=== PATIENT | male | born 1970 | race Caucasian/White ===

== ENCOUNTER → 2021-04-05 | Outpatient (CLI) | payer BC ==
[~2021-04-05] VITALS: Ht 185.4 cm; Wt 101.6 kg
[~2021-04-05] MED LIST: ALEVE220 MG PO; MULTI VITAMIN1 EACH PO; NABUMETONE 500500 M2 PO
[2021-04-05 08:19] VITALS: BP 166/105
--- NOTE | 2021-04-05 08:45 | NUR ---
Pain Clinic Assessment: 1. History of Osteoarthritis: Right Upper Extremity Left Upper Extremity SPINE History of Rheumatoid Arthritis: Not Applicable 2. Height: 6 ft. 1 in. 185.4 cm. Weight: 224.0 lb. oz. 101.606 kg. Patient's BMI: 29.6 3. Vital Signs: BP: 166/105 Pulse: 79 Resp: 14 Temp: 02 Sat: 97 ECG Mon: 4. Pain Intensity: 2-4 5. Fall Risk: Dizziness: N Needs help standing or walking: N Fallen in the last 3 months: N Fall risk comments: 6. Patient on Blood Thinner: None 7. History of Hypertension: N 8. Opioid Therapy greater than 6 weeks: N Opiate Contract Signed: 9. Risk Assessment Tool Provided: LOW 10. Functional Assessment Tool: 11. Recreational Drug Use: Never Drug Type: Tobacco Use: Never Smoker Tobacco Type: Amount or Packs/day: How Many Years: Alcohol Use: Yes Frequency: Weekly Quant: 3
--- NOTE | 2021-04-11 12:13 | HPC ---
[facility] [address] [address] PAIN MANAGEMENT CONSULTATION Name: SKYLA MAZA Room #: REG Albert MYovana.#: [id number] Admission: 04/05/21 Attend Phys: Ronny Chavez DO Discharge: Date of : 74 Report #: [id number] THIS REPORT FOR: cc: JOSE ALFREDO FOX Physician not on staff Ronny Chavez DO ~ cc: Tara Drew DATE OF SERVICE: 04/05/2021 REFERRING: Tara Drew NP CHIEF COMPLAINT: Axial back pain. HISTORY OF PRESENT ILLNESS: As you know, the patient is a 50-year-old male reporting longstanding history of axial back pain began in 2019. He denies injury or trauma that may have led to symptom development. He has trialled conservative treatment options without much in the way of benefit. He was seen in consultation by Neurosurgery who advised the patient no surgical options are necessary. The source of his pain appears to be related to facet arthropathy. He was seen in consultation by our services at our [facility] office in 11/2020 and diagnosed with lumbosacral spondylosis and trialled on conservative treatment. He did well with conservative treatment initially, but unfortunately symptoms reoccurred. He was established an appointment to begin medial branch nerve blocks and move forward with radiofrequency lesioning, but was unable to do so due to his insurer. He has now changed insurances and has changed facilities and has transferred care to our facility at [facility] to discuss ongoing treatment. The patient reports today his pain is intermittent and momentary. He describes the pain as a shooting, sharp and stabbing sensation. He places current pain score 2-4/10 daily average at 4/10, worst pain has been 9/10. The patient states pain is exacerbated with bending at the waist sitting for any length of time or standing on concrete surfaces. The patient reports pain is improved with [id number] medications and stretching exercises. He has been referred to our service to discuss treatment options for axial back pain. PAST MEDICAL HISTORY: None. PAST SURGICAL HISTORY: 1. Left shoulder surgery. 2. Right shoulder surgery. SOCIAL HISTORY: The patient denies tobacco, IV or illicit drug use. Admits to occasional alcohol beverage. 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 He is unaccompanied at today's visit. [facility] [address] [place] [address] PAIN MANAGEMENT CONSULTATION Name: SKYLA MAZA Room #: REG CLI [facility]#: [id number] Admission: 04/05/21 Attend Phys: Ronny Chavez DO Discharge: Date of : 74 Report #: [id number] REVIEW OF SYSTEMS: Positive only for low back pain, nocturia and kidney stones. All other review of systems negative per 12-point review of systems other than those listed in history of present illness. Pain impact score 35/70, moderate interference of daily activities secondary to pain. ALLERGIES: No reported drug allergies. CURRENT MEDICATIONS: Nabumetone 500 mg twice a day and multivitamin 1 tab per day. IMAGING: No imaging available. PHYSICAL EXAMINATION: VITAL SIGNS: Blood pressure 140/100, pulse is 67, respiratory rate 18 and unlabored. The patient is 100% on room air. Height 6 feet 2 inches tall, weight 100.6 kg, BMI calculated 28.5. GENERAL: Well-developed, well-nourished, well-hydrated 50-year-old male appearing his stated age. He is placing current pain score 4/10. HEENT: Normocephalic, atraumatic. Pupils equal, round and responsive. Speech is fluent. He is wearing a mask in compliance with COVID-19 regulations. LUNGS: Clear, no wheeze, rhonchi or rales. CARDIOVASCULAR: Regular. No appreciable gallop, no rub. ABDOMEN: Soft, nontender. EXTREMITIES: Show no clubbing, no cyanosis. No appreciable edema. MUSCULOSKELETAL: Lower extremity strength equal and symmetrical 5/5, intact to light touch from L1 through S2 dermatomes. Seated straight leg raising negative. Supine straight leg raising negative. Marcie's test is negative. Modified Gaenslen's positive for axial low back pain. Lumbar provocation testing including extension, rotation, lateral flexion all intensify axial back pain without radiation of symptoms. ASSESSMENT: 1. Lumbosacral spondylosis without radiculopathy or myelopathy. 2. Facet arthropathy of lumbar spine. 3. Chronic low back pain. PLAN: 1. Based on today's physical exam and history the patient has provided, the description the patient uses in regards to pain as well as location of symptoms, it would appear the patient is suffering from facet arthropathy of lumbar spine. We have discussed with the patient the treatment options that we have available to address his lumbar spondylosis without radiculopathy or myelopathy. The following was discussed with the patient today. We discussed physical therapy, [facility] [address] [place] [address] PAIN MANAGEMENT CONSULTATION Name: SKYLA MAZA Room #: REG CLAlbert Theodore#: [id number] Admission: 04/05/21 Attend Phys: Ronny Chavez DO Discharge: Date of : 74 Report #: [id number] stretching exercises and core strengthening. The patient has been doing home exercise program that is physician directed without significant improvement in symptoms. We have discussed adjustments in medication management for a consistent nonsteroidal anti-inflammatory to be added to the patient's list of medications. We discussed medial branch nerve blocks and radiofrequency lesioning as the treatment approach that will likely provide the best analgesic long-term benefit. We also discussed surgical options with the patient. After reviewing risks and benefits of all the proposed treatment options, the patient chose to move forward with medial branch nerve blocks if these are then successful on to radiofrequency lesioning. 2. The patient was advised due to third green party payer restrictions authorization would have to be obtained before the patient could begin the medial branch blocking process. If these are then successful at alleviating symptoms greater than 80%, we would then move forward with radiofrequency lesioning medial branch nerves. The patient is agreeable with the plan. He will await authorization. 3. No medication changes made at today's visit. The patient will continue current medical therapy as prior prescribed. 4. We will see the patient back in followup visit once we have achieved authorization for the patient to undergo medial branch nerve blocks of the lumbar spine. If these are then successful in alleviating pain generated from the L4-L5 and L5-S1 levels, we would then move forward with medial branch nerve radiofrequency. 5. We wish to thank the referring nurse practitioner, Tara Drew for the opportunity to see the patient in consultation. We will keep you apprised of response to treatment as we address ongoing axial back pain. Again, we wish to thank you for the opportunity to see the patient in consultation. <ELECTRONICALLY SIGNED> By: Ronny Chavez DO 04/11/21 1213 [id number] Ronny Chavez DO /nt
== END ==
LOC: PAIN 06:55
PROVIDERS: ATTEND Anesthesiology Pain Medicine
DX: M47.817 Spondylosis without myelopathy or radiculopathy, lumbosacral region (principal); M54.6 Pain in thoracic spine; M54.50 Low back pain, unspecified

== ENCOUNTER → 2021-05-02 | Outpatient (CLI) | payer BC ==
[~2021-05-02] VITALS: Ht 185.4 cm; Wt 103.6 kg
--- NOTE | ~2021-05-02 | HPC ---
[facility] [place] [address] PAIN MANAGEMENT CONSULTATION Name: SKYLA MAZA Room #: REG CL M..#: [id number] Admission: 05/02/21 Attend Phys: Ronny Chavez DO Discharge: Date of : 74 Report #: [id number] THIS REPORT FOR: cc: JOSE ALFREDO FOX Physician not on staff Ronny Chavez DO ~ cc: Tara Drew NP, ____ ____ DATE OF SERVICE: 05/02/2021 REFERRING PHYSICIAN: Tara Drew, nurse practitioner. CHIEF COMPLAINT: Axial back pain. HISTORY OF PRESENT ILLNESS: As you know, the patient is a very pleasant 50-year-old male reporting longstanding history of axial back pain. Pain began somewhere in 2019, no inciting injury or trauma. He was seen in consultation per the request of nurse practitioner, Tara Drew with [facility], to address axial back pain due to facet arthropathy. We have transferred the patient's care up to our [facility] office due to insurance coverage and availability of devices to complete radiofrequency lesioning. He has made today's appointment to begin medial branch nerve blocks. If these are then successful in alleviating symptoms, move forward with radiofrequency lesioning. He returns today in followup visit having received authorization to undergo the medial branch blocks today. He is placing pain anywhere from 6/10 to 7/10 depending on activity. He denies new injury, new trauma or any changes in medication management since our last visit. ALLERGIES: No reported drug allergies. CURRENT MEDICATIONS: Nabumetone 500 mg b.i.d., multivitamin 1 tab per day. SOCIAL HISTORY: The patient denies tobacco, IV or illicit drug use. Admits occasional alcohol beverage. 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 IMAGING: There is no new imaging available. PHYSICAL EXAMINATION: VITAL SIGNS: Blood pressure 144/99, pulse is 69, respiratory rate 16 and unlabored. The patient is 96% on room air, height 6 feet 1 inch tall, weight 228.4 pounds, BMI calculated 30.1. GENERAL: Well-developed, well-nourished, well-hydrated, 50-year-old male, appearing stated age, placing pain today, 09/22 to 10/22. HEENT: Normocephalic, atraumatic. Pupils equal, round. He is wearing a mask in compliance with COVID-19 regulations and hospital policy. [address] [address] PAIN MANAGEMENT CONSULTATION Name: SKYLA MAZA [id number] Admission: 05/02/21 Attend Phys: Ronny Chavez DO Discharge: Date of : 74 Report #: [id number] EXTREMITIES: Show no clubbing, no cyanosis, no edema. MUSCULOSKELETAL: Lower extremity strength is symmetrical, 5/5. Muscle bulk and tone is equal and symmetrical in comparing lower extremities. Straight leg raising in the seated and supine positions are negative. Lumbar provocation testing including extension, rotation, lateral flexion all intensify axial back pain consistent with facet arthropathy. ASSESSMENT: 1. Lumbosacral spondylosis without radiculopathy or myelopathy. 2. Facet arthropathy of lumbar spine. 3. Lumbar degeneration. 4. Chronic intractable pain. PLAN: 1. The patient has returned today in followup visit to begin the medial branch nerve blocks in preparation to move forward with radiofrequency lesioning assuming efficacy with the blocks themselves. The patient reports pain today at level of 6/10 to 7/10. He has been advised risks and benefits of the medial branch nerve block. He understands that this is a temporary diagnostic procedure. If this is successful, we will move forward with a second in the series. If that again is successful at alleviating symptoms for prescribed amount of time, then move forward with radiofrequency lesioning. The patient is agreeable with plan. He wishes to undergo the procedure today. 2. No medication changes made at today's visit. The patient will continue current medical therapy as prior prescribed. 3. We will plan to see the patient back in followup visit in approximately 2 weeks. At that time, review the efficacy of today's medial branch nerve blocks and determine if next in the series would be appropriate to moving forward with radiofrequency lesioning beyond. PROCEDURE NOTE. DESCRIPTION OF PROCEDURE: Bilateral L3, L4, L5 medial branch nerve blocks under fluoroscopic guidance, #1 in the series. After obtaining written consent, the patient was taken back to fluoroscopy suite, placed in prone position with pillow under abdomen to decrease lumbar lordosis. Skin overlying lumbosacral area then prepped and draped in aseptic fashion. The L4 transverse process corresponding the L3 medial branch nerve and the L5 transverse process corresponding the L4 medial branch nerve were visualized under fluoroscopic guidance. Skin and subcutaneous tissue overlying target site of injections were then anesthetized with 1 mL of 1% preservative-free lidocaine. Next, four 22-gauge 3-1/2 inch spinal needles with bent tips were advanced under fluoroscopic guidance using a superior, inferior, lateral to medial approach to the dorsal, superior and medial aspect of the base of the transverse processes. Enterprise were then directed caudad to reach target [address] [address] PAIN MANAGEMENT CONSULTATION Name: SKYLA MAZA Room #: REG Albert Srivastava.#: [id number] Admission: 05/02/21 Attend Phys: Ronny Chavez DO Discharge: Date of : 74 Report #: [id number] locations. Oblique view facilitated needle placement with properly positioned needles within the middle of the "eye" of the Odilon dog. At each of the sites, the needles rested on periosteum. After negative aspiration for heme or cerebrospinal fluid, 0.5 mL of bupivacaine 0.5% was injected slowly to avoid forcing the solution away from the site. Enterprise were retracted approximately chcf flushed with 1 mL of 1% lidocaine and removed. The L5 dorsal ramus block both on the left and right side was performed using a slightly oblique approach under fluoroscopic guidance, placing the needles within the groove between the sacral ala and superior articular process of S1. Enterprise rested on periosteum. After negative aspiration for heme or cerebrospinal fluid, 0.5 mL of bupivacaine 0.5% was injected bilaterally. Enterprise were retracted chcf, flushed with 1 mL of 1% lidocaine and removed. Sterile bandage placed over injection site. There were no new motor deficits present in the lower extremities following procedure. The patient tolerated the procedure well, carefully escorted to recovery room in stable condition. No apparent complications. After meeting our discharge criteria, the patient discharged home. By: [id number] Ronny Chavez DO /lenny
[2021-05-02 11:01] VITALS: BP 144/99
--- NOTE | 2021-05-02 11:21 | NUR ---
Pain Clinic Assessment: 1. History of Osteoarthritis: Right Upper Extremity Left Upper Extremity SPINE History of Rheumatoid Arthritis: Not Applicable 2. Height: 6 ft. 1 in. 185.4 cm. Weight: 228.4 lb. oz. 103.602 kg. Patient's BMI: 30.1 3. Vital Signs: BP: 144/99 Pulse: 69 Resp: 16 Temp: 02 Sat: 96 ECG Mon: 4. Pain Intensity: 6-7 w/activity 5. Fall Risk: Dizziness: N Needs help standing or walking: N Fallen in the last 3 months: N Fall risk comments: 6. Patient on Blood Thinner: None 7. History of Hypertension: N 8. Opioid Therapy greater than 6 weeks: N Opiate Contract Signed: 9. Risk Assessment Tool Provided: SHELBI 10. Functional Assessment Tool: 11. Recreational Drug Use: Never Drug Type: Tobacco Use: Never Smoker Tobacco Type: Amount or Packs/day: How Many Years: Alcohol Use: Yes Frequency: Quant:
== END | disposition home or self-care (01) ==
LOC: PAIN 04-25 08:35
PROVIDERS: ATTEND Anesthesiology Pain Medicine
DX: M47.817 Spondylosis without myelopathy or radiculopathy, lumbosacral region (principal); M47.816 Spondylosis without myelopathy or radiculopathy, lumbar region; M51.36 Other intervertebral disc degeneration, lumbar region; G89.29 Other chronic pain; M19.90 Unspecified osteoarthritis, unspecified site; Z98.890 Other specified postprocedural states; Z79.899 Other long term (current) drug therapy

== ENCOUNTER → 2021-05-30 | Outpatient (CLI) | payer BC ==
[~2021-05-30] VITALS: Ht 185.4 cm; Wt 103.1 kg
[2021-05-30 13:50] VITALS: BP 130/94
--- NOTE | 2021-05-30 14:16 | NUR ---
Pain Clinic Assessment: 1. History of Osteoarthritis: Right Upper Extremity Left Upper Extremity SPINE History of Rheumatoid Arthritis: Not Applicable 2. Height: 6 ft. 1 in. 185.4 cm. Weight: 227.2 lb. oz. 103.057 kg. Patient's BMI: 30.0 3. Vital Signs: BP: 130/94 Pulse: 80 Resp: 16 Temp: 02 Sat: 97 ECG Mon: 4. Pain Intensity: 1 5. Fall Risk: Dizziness: N Needs help standing or walking: N Fallen in the last 3 months: N Fall risk comments: 6. Patient on Blood Thinner: None 7. History of Hypertension: N 8. Opioid Therapy greater than 6 weeks: N Opiate Contract Signed: 9. Risk Assessment Tool Provided: LOW 10. Functional Assessment Tool: 11. Recreational Drug Use: Never Drug Type: Tobacco Use: Never Smoker Tobacco Type: Amount or Packs/day: How Many Years: Alcohol Use: Yes Frequency: Weekly Quant: 2
--- NOTE | 2021-06-06 08:06 | HPC ---
[facility] [place] [address] PAIN MANAGEMENT CONSULTATION Name: SKYLA MAZA Room #: REG [facility] M..#: [id number] Admission: 05/30/21 Attend Phys: Ronny Chavez DO Discharge: Date of : 74 Report #: [id number] THIS REPORT FOR: cc: JOSE ALFREDO LAGUERRE Physician not on staff Ronny Chavez DO ~ cc: Jose Alfredo Laguerre NP, Tara Drew NP DATE OF SERVICE: 05/30/2021 REFERRING PHYSICIAN: Tara Drew NP CHIEF COMPLAINT: Axial back pain. HISTORY OF PRESENT ILLNESS: As you know, the patient is a very pleasant 50-year-old male referred to our clinic for axial back pain. He sought evaluation through Neurosurgery who advised the patient that his symptoms are likely related to facet arthropathy and to try medial branch nerve blocks and radiofrequency lesioning. We have established, the patient's appointment here at our [facility] office to undergo those types of procedures. He underwent the first in a series of medial branch blocks at our visit of 05/02/2021. He states that series of medial branch blocks provided 90% improvement in symptoms lasting almost 12 hours with recurrence of pain. He is very pleased with response to that treatment, returning today to undergo the second in the series. His response was consistent with the medication utilized for the medial branch blocks. He did attempt to exacerbate his symptoms directly after the medial branch blocks including running on a treadmill without recurrence of symptoms consistent with medial branch blocks and the medial branch nerves as the source of the pain. He returns today with a pain level of 1-2/10 to undergo the second in the series of medial branch blocks in preparation for radiofrequency lesioning. He has suffered no new injury, no new trauma or any changes in medication management since our last visit. ALLERGIES: No known drug allergies. CURRENT MEDICATIONS: Nabumetone and multivitamins. SOCIAL HISTORY: The patient denies tobacco, IV or illicit drug use. Admits to occasional alcohol beverage. 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 IMAGING: No new imaging available. PHYSICAL EXAMINATION: VITAL SIGNS: Blood pressure 130/94, pulse 80, respiratory rate 16 and unlabored. The patient is 97% on room air, height 6 feet 1 inch tall, weight 227.2 pounds, BMI calculated 30.0. [facility] [address] [place] [address] PAIN MANAGEMENT CONSULTATION Name: SKYLA MAZA Room #: REG CLI [facility]#: [id number] Admission: 05/30/21 Attend Phys: Ronny Chavez DO Discharge: Date of : 74 Report #: [id number] GENERAL: Well-developed, well-nourished, well-hydrated 50-year-old male appearing stated age, pain is rated today up 1-2/10. HEENT: Normocephalic, atraumatic. Pupils are round. He is wearing a mask in compliance with COVID-19 regulations in hospital policies. EXTREMITIES: Show no clubbing, no cyanosis. No appreciable edema. MUSCULOSKELETAL: Lower extremity strength remains symmetrical again today 5/5. Seated straight leg raising and supine straight leg raising negative. Lumbar provocation testing is met with slight increase in axial back pain, mainly with rotation and lateral flexion and extension. Muscle bulk and tone is equal and symmetrical in lower extremities. ASSESSMENT: 1. Lumbosacral spondylosis without radiculopathy or myelopathy. 2. Facet arthropathy of lumbar spine. 3. Lumbar degeneration. 4. Chronic intractable pain. PLAN: 1. The patient returns today in followup visit having done very well after our medial branch blocks from the last visit. He reported up to 90% improvement in overall pain lasting for about 12 hours. He states he was able to return to all activities of daily living without significant pain interference. He was also able to return to his typical exercise routine, which is running on a treadmill. He states he ran on the treadmill without difficulty without pain. He was very excited about that outcome. His symptoms did reoccur within the 12-hour period with return of symptoms back to his baseline level. He returns today to undergo the second in the series of medial branch blocks in hopes of improving pain. The patient has been advised risks and benefits of this procedure, states understood and wished to proceed. The patient reports directly after the injections, a 0/10 pain level. He was pain free upon leaving our clinic. He was to leave today to go home and do all activities that tend to exacerbate symptoms until which time his pain returned. He is then going to contact our clinic so that we can determine the length of time the block provided benefit. The fact that he is 100% improvement in overall pain before leaving would indicate that moving forward with radiofrequency lesioning would be appropriate. He will contact our clinic or go to advise us the length of time he received benefit. 2. No medication changes made at today's visit. The patient will continue current medical therapy as prior prescribed. 3. We will plan to see the patient back in followup visit to begin radiofrequency lesioning of the medial branch nerves of the lumbar spine. The patient has bilateral pain and wishes to begin with a right L3, L4, L5 medial branch radiofrequency lesioning followed 1-2 weeks later for left, L3, L4, L5 radiofrequency lesioning. We have tentatively placed the patient on the [facility] [address] [place] [address] PAIN MANAGEMENT CONSULTATION Name: LINKSKYLA Room #: REG TESSA Theodore#: [id number] Admission: 05/30/21 Attend Phys: Ronny Chavez DO Discharge: Date of : 74 Report #: [id number] schedule to undergo the right L3, L4, L5, RFA next week. We will adjust that if authorizations have not been obtained by that time. <ELECTRONICALLY SIGNED> By: Ronny Chavez DO 06/06/21 0806 1553 01 Ronny Chavez DO /nt
--- NOTE | 2021-07-11 15:46 | P ---
[address] [address] PROCEDURE REPORT Name: SKYLA MAZA Room #: REG [facility].#: [id number] Admission: 05/30/21 Attend Phys: Ronny Chavez DO Discharge: Date of : 74 Report #: [id number] THIS REPORT FOR: cc: JOSE ALFREDO FOX Physician not on staff Ronny Chavez DO ~ cc: Tara Hines NP DATE OF SERVICE: 05/30/2021 REFERRING PHYSICIAN: Tara Hines NP. CHIEF COMPLAINT: Low back pain. DESCRIPTION OF PROCEDURE: Bilateral L3, L4, L5 medial branch nerve blocks under fluoroscopic guidance, #2 in the series. After obtaining written consent, the patient was taken back to fluoroscopy suite, placed in prone position with pillow under abdomen to decrease lumbar lordosis. Skin overlying lumbosacral area then prepped and draped in aseptic fashion. The L4 transverse process corresponding the L3 medial branch nerve and the L5 transverse process corresponding the L4 medial branch nerve were visualized under fluoroscopic guidance. Skin and subcutaneous tissue overlying target site injection was anesthetized with 1 mL of 1% lidocaine preservative-free. Next, four 22-gauge 3-1/2 inch spinal needles with bent tips were advanced under fluoroscopic guidance using a superior to inferior, lateral to medial approach to the dorsal, superior and medial aspect of the base of the transverse processes. [place] were then directed caudad to reach the target locations. Oblique view facilitated needle placement with properly positioned needles within the middle of the "eye" of the Odilon dog. At each of the sites, the needles rested on periosteum. After negative aspiration for heme or cerebrospinal fluid, 0.5 mL of bupivacaine 0.5% was injected slowly to avoid forcing the solution away from the sites. [place] were then retracted retirement, flushed with 1 mL of 1% lidocaine and removed. The L5 dorsal ramus block both on the left and right side was performed using a slightly oblique approach under fluoroscopic guidance, placing the needles within the groove between the sacral ala and the superior articular processes of S1. [place] rested on periosteum. After negative aspiration for heme or cerebrospinal fluid, 0.5 mL of bupivacaine 0.5% was injected at each site. [place] were then retracted retirement, flushed with 1 mL of 1% lidocaine, then removed. Sterile bandage placed over injection site. There were no new motor deficits present in the lower extremities following the procedures. The patient tolerated the procedure well, carefully escorted to recovery room in stable condition. No apparent complications. After meeting our discharge [address] [address] PROCEDURE REPORT Name: MAZASKYLA SIMENTAL Room #: [facility]#: [id number] Admission: 05/30/21 Attend Phys: Ronny Chavez DO Discharge: Date of : 74 Report #: [id number] criteria, the patient was discharged home. VAS before procedure was rated as high as 2-3/10. VAS directly after the procedure was rated at 0/10. <ELECTRONICALLY SIGNED> By: Ronny Chavez DO 07/11/21 [id number] Ronny Chavez DO /nt
== END | disposition home or self-care (01) ==
LOC: PAIN 10:46
PROVIDERS: ATTEND Anesthesiology Pain Medicine
DX: M47.817 Spondylosis without myelopathy or radiculopathy, lumbosacral region (principal); M47.816 Spondylosis without myelopathy or radiculopathy, lumbar region; M51.36 Other intervertebral disc degeneration, lumbar region; G89.29 Other chronic pain; M19.90 Unspecified osteoarthritis, unspecified site; Z98.890 Other specified postprocedural states; Z79.899 Other long term (current) drug therapy